=== PATIENT | female | born 1985 | race Caucasian/White ===

== ENCOUNTER 2022-11-11 15:08 | Emergency (ER) | payer MEDICAID ==
[~2022-11-11] VITALS: Ht 167.6 cm; Wt 69.0 kg
[2022-11-11 15:30] VITALS: BP 115/71; PULSE 76; RESP 18; TEMP 98.3; O2SAT 100
== END 2022-11-11 18:08 | disposition left against medical advice (07) ==
LOC: ER 15:08
DX: O26.891 Other specified pregnancy related conditions, first trimester (principal); Z3A.08 8 weeks gestation of pregnancy; Z53.21 Procedure and treatment not carried out due to patient leaving prior to being seen by health care provider
CPT/HCPCS: 99281